=== PATIENT | female | born 1975 | race Caucasian/White ===

== ENCOUNTER 2017-08-23 15:16 | Emergency (ER) | payer OTHER ==
[~2017-08-23] VITALS: Ht 160 cm; Wt 58.0 kg
[2017-08-23 15:35] LABS: HEMATOCRIT 36.3 % (36.0-46.0); HEMOGLOBIN 11.9 G/DL (11.9-15.5); MCH 30.4 PG (29.0-34.0); MCHC 32.8 G/DL (30.0-36.0); MCV 92.6 FL (83-99); PLATELET COUNT 254 K/uL (156-360); RBC DIS.WIDTH-CV 13.9 % (11.8-14.6); RBC DIS.WIDTH-SD 46.6 % (39-53); RED BLOOD COUNT 3.92 M/uL (3.80-5.20); WHITE BLOOD COUNT 5.6 K/uL (4.1-10.2)
[2017-08-23 15:44] LABS: ALBUMIN 3.8 g/dL (3.2-4.8); CHLORIDE 107 mEq/L (99-109); POTASSIUM 4.5 mEq/L (3.7-5.4); SODIUM 140 mEq/L (136-147)
[2017-08-23 15:46] LABS: GLUCOSE 109 mg/dL (70-99); TOTAL PROTEIN 6.5 g/dL (6.4-8.3)
[2017-08-23 15:48] LABS: TOTAL BILIRUBIN 0.2 mg/dL (0.0-1.0)
[2017-08-23 15:49] LABS: SERUM ETHYL ALCOHOL < 10 mg/dL
[2017-08-23 15:50] LABS: ALKALINE PHOSPHATASE 83 IU/L (3-129); CREATININE 0.8 mg/dL (0.6-1.3)
[2017-08-23 15:51] LABS: AST (GOT) 12 IU/L (2-34); GFR ESTIMATE (CALCULATED) > 59 mL/min/; UREA NITROGEN (BUN) 8 mg/dL (9-23)
[2017-08-23 15:53] LABS: ALT (GPT) 9 IU/L (3-49)
[2017-08-23 15:58] LABS: QUANTITATIVE HCG < 4.0 MIU/ML
[2017-08-23] MEDS ORDERED: NARCAN4 MG NS (22:18)
[2017-08-23 23:18] VITALS: BP 106/68
== END 2017-08-23 23:24 | disposition home or self-care (01) ==
LOC: EME 15:16
PROVIDERS: Emergency Medicine
DX: T40.2X1A Poisoning by other opioids, accidental (unintentional), initial encounter (principal); F17.200 Nicotine dependence, unspecified, uncomplicated
CPT/HCPCS: 80053; 81003; 84702; 85027; 99281; 99285; G0480; J2310